=== PATIENT | female | born 1990 | race Caucasian/White ===

== ENCOUNTER 2019-05-04 21:02 | Emergency (ER) | payer SELFPAY ==
[2019-05-05] MEDS ORDERED: Diazepam TAB(*) 5 MG PO ONE (01:13)
[2019-05-05] MEDS ORDERED: Ketorolac INJ* 30 MG/ML 1 ML VIAL IM ONE (01:13)
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
[2019-05-05 02:42] VITALS: BP 100/86
== END 2019-05-05 02:41 | disposition home or self-care (01) ==
LOC: ED 21:02
DX: M25.512 Pain in left shoulder (principal); M54.2 Cervicalgia; M62.830 Muscle spasm of back; F17.200 Nicotine dependence, unspecified, uncomplicated; V49.40XA Driver injured in collision with unspecified motor vehicles in traffic accident, initial encounter; Y92.410 Unspecified street and highway as the place of occurrence of the external cause
CPT/HCPCS: 96372; 99282; A9270-GY; J1885